=== PATIENT | female | born 1965 | race Hispanic/Latino ===

== ENCOUNTER 2024-08-26 18:35 | Inpatient (IN) | payer OTHER ==
[2024-08-26 19:12] LABS: Absolute Lymphocytes (CBC) 1.4 K/uL (0.7-4.9); Absolute Monocytes 0.3 K/uL (0.1-1.3); Absolute Neutrophil 5.4 K/uL (1.8-8.0); Basophils % 0.5 % (0-1.3); Eosinophils % 0.5 % (0-4.4); Hemoglobin 15.3 g/dL (12.0-15.0); Lymphocytes % 19.5 % (15.3-44.8); MCH 31.6 pg (27.0-35.0); MCHC 34.1 g/dL (32.0-36.0); MCV 92.7 fL (80-100); MPV 8.8 fL (7.6-11.3); Monocytes % 4.8 % (3.3-12.3); Neutrophils % 74.7 % (41.7-73.7); Nucleated Red Blood Cells % 0.1 % (0-0); Platelets 254 thou/uL (152-406); RBC Red Blood Cell Count 4.86 M/uL (3.86-4.86); Red Cell Distribution Width 13.8 % (12.1-15.2)
--- NOTE | 2024-08-26 19:20 | RAD REPORT ---
EXAMINATION: CT HEAD WITHOUT CONTRAST - stroke protocol CLINICAL INDICATION: Female, 59 years old.STROKE ALERT TECHNIQUE: Axial CT images from the skull base to the vertex without intravenous contrast using a str ronnie protocol. Coronal and sagittal reformatted images were created from the data set. One or more of the following dose reduction techniques were used: Automated exposure control, adjustment of the m A and/or kV according to patient size, and/or iterative reconstruction. Unless otherwise specified, incidental findings do not require dedicated imaging follow-up. [id number]. COMPARISON: No prior exam. FINDINGS: INTRACRANIAL: No acute intracranial hemorrhage. No hydrocephalus. No mass effect or midline shift. No significant white matter disease. VASCULATURE: No visualized abnormalities in the arteries or dural venous sinuses. SCALP/SKULL: No significant soft tissue or osseous abnormalities. SINUSES: Mucous retention cyst in the left maxillary sinus. IMPRESSION: No acute intracranial abnormality. THIS REPORT CONTAINS FINDINGS THAT MAY BE CRITICAL TO PATIENT CARE. The findings were communicated to Digna Mcdowell on 08/26/2024 7:16 PM.
--- NOTE | 2024-08-26 19:21 | RAD REPORT ---
EXAMINATION: CTA NECK CLINICAL INDICATION: Female, 59 years old. stroke TECHNIQUE: Axial CT images were obtained from the aortic arch to the skull base after intravenous con trast utilizing angiographic protocol with 3D post-processing (maximum intensity projection images, volume rendered images and/or shaded surface rendered images). One or more of the following dose redu ction techniques were used: Automated exposure control, adjustment of the mA and/or kV according to patient size, and/or iterative reconstruction. Unless otherwise specified, incidental findings do not require dedicated imaging follow-up. [id number]. NASCET criteria used. Mild 0-49% stenosis Moderate 50-69% stenosis Severe 70-99% stenosis COMPARISON: No prior exam. FINDINGS: AORTA: The imaged aortic arch is normal. CCA: The common carotid arteries are patent and normal in caliber. ICA/ECA: Bilateral internal and external carotid arteries are patent. There is no significant interna l carotid artery stenosis. Where applicable, degree of stenosis is measured using NASCET-like criteria. VERTEBRAL: The cervical vertebral arteries are patent and codominant. SOFT TISSUE: No significant neck soft tissue abnormalities. The visualized lung apices are clear. 3D images confirm these findings. IMPRESSION: Normal neck CTA.
[2024-08-26 19:23] LABS: PT Prothrombin Time 11.5 SECONDS (10.0-13.0); PTT, Activated Partial Thromb 33.3 SECONDS (24.3-36.9); Protime INR 1.01
--- NOTE | 2024-08-26 19:23 | RAD REPORT ---
EXAMINATION: CTA HEAD CLINICAL INDICATION: Female, 59 years old. STROKE ALERT TECHNIQUE: Axial CT images were obtained through the head after intravenous contrast utilizing angiog raphic protocol with 3D post-processing (maximum intensity projection images, volume rendered images and/or shaded surface rendered images). One or more of the following dose reduction technique s were used: Automated exposure control, adjustment of the mA and/or kV according to patient size, and/or iterative reconstruction. Unless otherwise specified, incidental findings do not require dedic ated imaging follow-up. COMPARISON: No prior exam. FINDINGS: ICA: The petrous, cavernous, and supraclinoid segments of the bilateral internal carotid arteries are normal. The ophthalmic artery origins are visualized and normal. The posterior communicating arteries are patent. JACQUI: Anterior cerebral arteries are normal bilaterally. The anterior communicating artery is patent. MCA: Middle cerebral arteries are normal bilaterally. HOUSE ADMIN: Posterior cerebral arteries are normal bilaterally. Vertebrobasilar: The vertebral arteries are patent. The basilar artery is normal in appearance. Opacified left sphenoid sinus. Mucous retention cyst left maxillary sinus. 3D images confirm these findings. IMPRESSION: No occlusion, aneurysm, or hemodynamically significant stenosis identified.
--- NOTE | 2024-08-26 19:35 | RAD REPORT ---
EXAM: Chest Single View HISTORY: stroke COMPARISON: None. FINDINGS: LUNGS/PLEURA: The lungs are clear. No pleural effusions or pneumothorax. No pulmonary edema. MEDIASTINUM: The mediastinal silhouette is within normal limits. CARDIAC: The cardiac silhouette is within normal limits. UPPER ABDOMEN: No significant abnormality. BONES: No acute abnormality. LINES/TUBES/OTHER: N/A IMPRESSION: No evidence of acute cardiopulmonary disease.
[2024-08-26 19:37] LABS: Albumin 3.7 g/dL (3.4-5.0); Albumin/Globulin Ratio 0.8 (1.1-1.8); Anion Gap 9.9 mEq/L (5.0-15.0); Bilirubin Direct 0.2 mg/dL (0-0.2); Bilirubin Indirect, Calculated 0.4 mg/dL (0.2-0.8); Bilirubin Total 0.6 mg/dL (0.2-1.0); Globulin 4.6 g/dL (2.3-3.5); Magnesium 2.3 mg/dL (1.6-2.4); Potassium 3.9 mEq/L (3.5-5.1); Protein, Total 8.3 g/dL (6.4-8.2); Thyroid Stimulating Hormone 2.08 uIU/mL (0.358-3.740); Troponin High Sensitivity 3.8 pg/mL (<58.9)
--- NOTE | 2024-08-26 19:45 | RAD REPORT ---
EXAMINATION: CT ABDOMEN AND PELVIS WITH CONTRAST CLINICAL INDICATION: Female, 59 years old.ABD PAIN TECHNIQUE: CT abdomen and pelvis was performed, after the administration of IV contrast, as [facility]. Axial, sagittal and coronal reconstructions were obtained. One or more of the following dose reduction techniques were used: Automated exposure control, adjustment of the mA and/o r kV according to patient size, and/or iterative reconstruction. Unless otherwise specified, incidental findings do not require dedicated imaging follow-up. [id number]. COMPARISON: No prior exam. FINDINGS: LOWER CHEST: No acute process identified.No significant pericardial effusion. UPPER GI: No significant abnormality. LIVER: Benign appearing low density liver lesions. No suspicious mass. GALLBLADDER/BILE DUCTS: Cholecystectomy. Mild extra-hepatic biliary ductal dilatation is likely relat ed to the post-cholecystectomy state. Consider correlating with LFT's.? PANCREAS: No mass, ductal dilation, or madeline-pancreatic fluid. SPLEEN: Unremarkable. ADRENALS: No adrenal masses. KIDNEYS AND URETERS: No hydronephrosis.No suspicious renal mass.No renal calculi. ABDOMINAL AORTA AND OTHER VESSELS: Normal caliber aorta and IVC. PERITONEUM: No abnormal free fluid. No free air. LYMPH NODES: No pathologic lymphadenopathy. ABDOMINAL WALL: Small fat containing umbilical hernia. SMALL BOWEL/COLON: Small bowel has normal course and caliber. No colonic wall thickening or pericolon ic inflammatory changes.Normal appendix. Mild diverticulosis without diverticulitis. URINARY BLADDER: Circumferential bladder wall thickening which could reflect cystitis. Correlate with urinalysis. REPRODUCTIVE ORGANS: No pathologic process. MUSCULOSKELETAL: Multilevel degenerative changes in the spine. No acute fracture. ADDITIONAL FINDINGS: None. IMPRESSION: No acute findings within the abdomen or pelvis. Possible cystitis.
[2024-08-26 20:39] LABS: Urine Bacteria None Seen /HPF (<20); Urine Bilirubin NEGATIVE (Negative); Urine Blood Negative (Negative); Urine Clarity Clear (Clear); Urine Color Colorless (Yellow); Urine Culture Reflex Order NOT NEEDED; Urine Glucose NEGATIVE (Negative); Urine Ketones 1+ (Negative); Urine Micro Reflex YN NO BILL MICROSCOPIC; Urine Nitrite NEGATIVE (Negative); Urine Protein NEGATIVE (Negative); Urine RBC <5 /HPF (None Seen); Urine Urobilinogen Normal (Normal); Urine WBC <5 /HPF (<5)
[2024-08-26 20:42] LABS: Barbiturates NEGATIVE (NEGATIVE); Benzodiazepines NEGATIVE (NEGATIVE); Cocaine NEGATIVE (NEGATIVE); METHAMPHETAM NEGATIVE (NEGATIVE); Methadone NEGATIVE (NEGATIVE); Opiates NEGATIVE (NEGATIVE); Phencyclidine NEGATIVE (NEGATIVE); THC Cannibis NEGATIVE (NEGATIVE)
[2024-08-26 20:43] LABS: Specific Gravity > 1.030 (1.005-1.030)
--- NOTE | 2024-08-26 20:55 | RAD REPORT ---
UPPER EXTREMITY VENOUS UNILATE CLINICAL INDICATION: Female, 59 years old.NUMBNESS/TINGLING TECHNIQUE: Complete duplex sonography of the lower extremity veins was performed of the affected limb . The examination included compression for vein patency, color Doppler imaging and flow augmentation in response to distal compression of the distal external iliac, common femoral, femoral, popliteal, peroneal, tibial and great saphenous veins. [id number]. COMPARISON: EXAM: Left upper extremity venous ultrasound HISTORY: Left upper extremity pain and edema COMPARISON: None TECHNIQUE: Multiplanar grayscale and color Doppler images were obtained in a left upper extremity hari ous ultrasound. Spectral analysis of the Doppler waveforms were performed. FINDINGS: The internal jugular vein demonstrates normal compression and flow without evidence of thrombus. The subclavian vein demonstrates normal flow and augmentation without evidence of thrombus. The axillary and brachial veins demonstrate normal compression, flow, and augmentation without eviden ce of thrombus. The venous structures distal to the elbow are patent without thrombus. The cephalic and basilic veins are patent. IMPRESSION: No evidence of deep venous thrombosis in the left upper extremity
--- NOTE | 2024-08-26 21:09 | ER ---
Nurse's Notes [facility] Name: Augusta Geronimo Age: 59 yrs Sex: Female : 1965 Arrival Date: 08/26/2024 Time: 18:35 Bed 16 Private MD: Diagnosis: CVA rule out Presentation: 08/26 18:44 Chief complaint: Patient states: she took a weightloss shot yesterday, and then got an ap3 IV infusion because she felt dehydrated. patient states today she was nauseated and "feeling off". patient also reports that before she vomited her left arm went numb approx one hour ago at 1745, then she vomited green stuff, and she has never done that before. patient states, "I just feel off". Patient states the last time she felt her normal self was last night at 2030. Coronavirus screen: At this time, the client does not indicate any symptoms associated with coronavirus-19. Ebola Screen: No symptoms or risks identified at this time. Initial Sepsis Screen: Does the patient meet any 2 criteria? No. Patient's initial sepsis screen is negative. Does the patient have a suspected source of infection? No. Patient's initial sepsis screen is negative. Risk Assessment: Do you want to hurt yourself or someone else? Patient reports no desire to harm self or others. Onset of symptoms was August 25, 2024 at 20:30. 18:44 Method Of Arrival: Ambulatory ap3 18:44 Acuity: FRANCISCO 2 ap3 18:52 Note code stroke called at 1852. ap3 19:20 No acute neurological deficit is noted. Pre-hospital glucose is not applicable to this al5 patient. Triage Assessment: 18:48 General: Appears ill, Behavior is calm, cooperative, appropriate for age. Pain: ap3 Complains of pain in abdomen. Neuro: Reports numbness in left arm. Cardiovascular: Patient's skin is warm and dry. Respiratory: Airway is patent Respiratory effort is even, unlabored, Respiratory pattern is regular, symmetrical. GI: Reports nausea, vomiting. 19:20 The onset of the patients symptoms was August 25, 2024 at 20:30. al5 Stroke Activation: Physician: ED Attending; Name: ; Notified At: ; Arrived At: Physician: Mid-Level Provider; Name: ; Notified At: ; Arrived At: Physician: [not used]; Name: ; Notified At: ; Arrived At: Physician: [not used]; Name: ; Notified At: ; Arrived At: Physician: [not used]; Name: ; Notified At: ; Arrived At: 19:20 n/a al5 Historical: - Allergies: 18:47 No Known Allergies; ap3 - Home Meds: 18:47 levothyroxine oral [Active]; ap3 - PMHx: 18:47 Hypothyroidism; ap3 - Immunization history:: Client reports receiving the 2nd dose of the Covid vaccine, Flu vaccine status is unknown. - Infectious Disease History:: Denies. - Social history:: Smoking status: unknown. Screenin:49 [facility] ED Fall Risk Assessment (Adult) History of falling in the last 3 months, ap3 including since admission No falls in past 3 months (0 pts) Confusion or Disorientation No (0 pts) Intoxicated or Sedated No (0 pts) Impaired Gait No (0 pts) Mobility Assist Device Used No (0 pt) Altered Elimination No (0 pt) Score/Fall Risk Level 0 - 2 = Low Risk Oriented to surroundings, Maintained a safe environment, Educated pt \\T\\ family on fall prevention, incl call for assistance when getting out of bed, Assessed \\T\\ reinforced patient's understanding of fall precautions, Hourly rounding (assess needs \\T\\ fall precautionary measures) done, Used ambulatory aids as needed (educated on \\T\\ assisted with). Abuse screen:. Nutritional screening: No deficits noted. Tuberculosis screening: No symptoms or risk factors identified. 19:00 [place] Swallow Protocol Brief Cognitive Screen What is your name? Normal, Where are you kb3 right now? Normal, What year is it? Normal. Oral Mechanism Examination Facial Symmetry: Normal, Motion: Normal, Lip Closure: Normal, Oral Mechanism Result: Normal. 3 oz Water Swallow Challenge: Pt able to drink all water without stopping, coughing, choking or throat clearing: Yes Result: PASS. Assessment: 18:53 Reassessment: Pt taken to CT scan, via wheelchair, accompanied by me. . aa5 19:17 Reassessment: Pt back from CT scan, via wheelchair, accompanied by me. . aa5 19:20 General: Appears in no apparent distress. comfortable, Behavior is calm, cooperative. al5 Pain: Denies pain. Neuro: Level of Consciousness is awake, alert, obeys commands, Oriented to person, place, time, situation, Electrical Appliance Mechanic are equal bilaterally Moves all extremities. Full function Gait is steady, Speech is normal, Facial symmetry appears normal, Pupils are PERRLA, Numbness in left hand. Cardiovascular: Capillary refill < 3 seconds Patient's skin is warm and dry. Respiratory: Airway is patent Respiratory effort is even, unlabored, Respiratory pattern is regular, symmetrical. GI: Abdomen is flat, non-distended, Reports nausea. : No signs and/or symptoms were reported regarding the genitourinary system. EENT: No signs and/or symptoms were reported regarding the EENT system. Derm: Skin is intact, is healthy with good turgor, Skin is pink, warm \\T\\ dry. normal. Musculoskeletal: Capillary refill < 3 seconds, Range of motion: intact in all extremities, Reports numbness in left hand. 19:20 VAN Scoring: Arm Drift: Patients demonstrates NO arm weakness. Patient is VAN Negative. al5 Visual Disturbance: No visual disturbance noted. Aphasia: No aphasia noted. Neglect: No neglect noted. [place] Swallow Protocol Exclusion Criteria: Exclusion Criteria Result: Proceed Brief Cognitive Screen What is your name? Normal, Where are you right now? Normal, What year is it? Normal. Oral Mechanism Examination Facial Symmetry: Normal, Motion: Normal, Lip Closure: Normal, Oral Mechanism Result: Normal. 3 oz Water Swallow Challenge: Pt able to drink all water without stopping, coughing, choking or throat clearing: Yes Result: PASS MD Notified: Digna Mcdowell PA-C. TNKase (Tenecteplase) Screening: Contraindications: Patient reports onset of signs and symptoms of stroke greater than 6 hours ago: Yes. 20:13 Reassessment: Patient appears in no apparent distress at this time. No changes from al5 previously documented assessment. Patient and/or family updated on plan of care and expected duration. Pain level reassessed. Patient is alert, oriented x 3, equal unlabored respirations, skin warm/dry/pink. Vital Signs: 18:44 BP 124 / 82; Pulse 111; Resp 18; Temp 98.2(O); Pulse Ox 100% ; Weight 69.4 kg; Height 5 ap3 ft. 0 in. ; Pain 7/10; 19:00 al5 21:19 BP 137 / 77; Pulse 79; Resp 13; Pulse Ox 100% ; sb4 18:44 Body Mass Index 29.88 (69.40 kg, 152.4 cm) ap3 18:44 Pain Scale: Adult ap3 19:00 see stroke checklist for vital signs al5 NIH Stroke Scale Scores: 18:54 NIHSS Score: 1 sb4 19:20 NIHSS Score: 1 al5 ED Course: 18:38 Patient arrived in ED. mr 18:44 Digna Mcdowell PA-C is PHCP. sb4 18:44 Christopher Peter MD is Attending Physician. sb4 18:47 Triage completed. ap3 18:49 Arm band placed on right wrist. ap3 19:08 CT Stroke Brain w/o Contrast In Process Unspecified. EDMS 19:12 June Reid, GABRIEL is Primary Nurse. al5 19:14 CT Head Angio In Process Unspecified. EDMS 19:14 CT Neck Angio In Process Unspecified. EDMS 19:14 CT Abd/Pelvis - IV Contrast Only In Process Unspecified. EDMS 19:20 Patient has correct armband on for positive identification. Placed in gown. Bed in low al5 position. Call light in reach. Side rails up X2. Provided Education on: plan of care. 19:20 No provider procedures requiring assistance completed. Inserted saline lock: 20 gauge al5 in left antecubital area, using aseptic technique. Blood collected. Flushed with 10 mL NS. 19:28 Stroke CXR 1 View In Process Unspecified. EDMS 20:50 UPPER EXTREMITY VENOUS UNILATE In Process Unspecified. EDMS 21:09 River Moser MD is Hospitalizing Provider. sb4 21:09 Patient admitted, IV remains in place. al5 Administered Medications: 21:51 Drug: NS 0.9% IV 1000 ml IV at 1 bolus Per protocol; to be given as a bolus over 60 al5 minutes Route: IV; Rate: 1 bolus; Site: left antecubital; 08/27 03:22 Follow up: Response: No adverse reaction; IV Status: Completed infusion ay 08/26 21:51 Drug: Aspirin PO Chewable Tablet 162 mg PO once Route: PO; al5 22:26 Follow up: Response: No adverse reaction al5 21:51 Not Given (medication not available, provider notifiedd): folic acid1 mg IVPB once al5 22:26 Drug: foLIC Acid PO 1 mg PO once Route: PO; al5 08/27 03:22 Follow up: Response: No adverse reaction ay 08/26 22:26 Drug: metoCLOPramide IVP 10 mg IVP once; over 1 to 2 minutes Route: IVP; Site: left al5 antecubital; 08/27 03:21 Follow up: Response: No adverse reaction ay 08/26 22:26 Drug: diphenhydrAMINE IVP 25 mg IVP once Route: IVP; Site: left antecubital; al5 08/27 03:21 Follow up: Response: No adverse reaction ay 08/26 22:26 Drug: Ketorolac IVP 15 mg IVP once Route: IVP; Site: left antecubital; al5 08/27 03:21 Follow up: Response: No adverse reaction ay Medication: 08/26 19:20 VIS not applicable for this client. al5 Point of Care Testing: Blood Glucose: 19:20 Blood Glucose: 92 mg/dL; al5 Ranges: Outcome: 21:09 Decision to Hospitalize by Provider. sb4 21:09 Admitted to ER Hold. Please see [facility] for further documentation. al5 21:09 Condition: stable 21:09 Instructed on the need for admit, 08/27 14:49 Patient left the ED. ll1 NIH Stroke Scale - NIH Stroke Score Date: 08/26/2024 Time: 18:54 Total Score = 1 10. Dysarthria (speech clarity - read or repeat words) - 0(Normal) 11. Extinction and Inattention (visual/tactile/auditory/spatial/personal) - 0(No abnormality) 1a. Level of Consciousness (LOC) - 0(Alert) 1b. Level of Consciousness (LOC) (Month \\T\\ Age) - 0(Both) 1c. LOC Commands (Open \\T\\ Closes Eyes/Derivatives Trader) - 0(Both) 2. Best Gaze (Lateral Gaze Paresis) - 0(Normal) 3. Visual Field Loss - 0(No visual loss) 4. Facial Palsy - 0(Normal) 5a. Left Arm: Motor (10-second hold) - 0(No drift) 5b. Right Arm: Motor (10-second hold) - 0(No drift) 6a. Left Leg: Motor (5-second hold - always test supine) - 0(No drift) 6b. Right Leg: Motor (5-second hold - always test supine) - 0(No drift) 7. Limb Ataxia (finger/nose \\T\\ heel/mcconnell - test with eyes open) - 0(Absent) 8. Sensory Loss (pinprick arms/legs/face) - 1(Mild to moderate loss) 9. Best Language: Aphasia (description/naming/reading) - 0(No aphasia) Initials: sb4 NIH Stroke Scale - NIH Stroke Score Date: 08/26/2024 Time: 19:20 Total Score = 1 10. Dysarthria (speech clarity - read or repeat words) - 0(Normal) 11. Extinction and Inattention (visual/tactile/auditory/spatial/personal) - 0(No abnormality) 1a. Level of Consciousness (LOC) - 0(Alert) 1b. Level of Consciousness (LOC) (Month \\T\\ Age) - 0(Both) 1c. LOC Commands (Open \\T\\ Closes Eyes/Derivatives Trader) - 0(Both) 2. Best Gaze (Lateral Gaze Paresis) - 0(Normal) 3. Visual Field Loss - 0(No visual loss) 4. Facial Palsy - 0(Normal) 5a. Left Arm: Motor (10-second hold) - 0(No drift) 5b. Right Arm: Motor (10-second hold) - 0(No drift) 6a. Left Leg: Motor (5-second hold - always test supine) - 0(No drift) 6b. Right Leg: Motor (5-second hold - always test supine) - 0(No drift) 7. Limb Ataxia (finger/nose \\T\\ heel/mcconnell - test with eyes open) - 0(Absent) 8. Sensory Loss (pinprick arms/legs/face) - 1(Mild to moderate loss) 9. Best Language: Aphasia (description/naming/reading) - 0(No aphasia) Initials: al5 Signatures: Dispatcher [employer] [facility] Mary Shelton, Reg Reg mr Jose REduarda, RN RN aa5 June Howard RN RN ap3 Gabriel Molina RN RN ll1 Sejal Hickey RN RN kb3 Digna Mcdowell, PA-C PA-C sb4 June Reid RN RN al5 King Multani RN RN ay
--- NOTE | 2024-08-26 21:10 | EDPHYS ---
Physician Documentation [facility] Name: Augusta Geronimo Age: 59 yrs Sex: Female : 1965 Arrival Date: 08/26/2024 Time: 18:35 Bed 16 Private MD: ED Physician Christopher Peter HPI: 08/26 18:53 This 59 yrs old Female presents to ER via Ambulatory with complaints of sb4 Numbness Of Arm, Nausea. 18:55 Patient states that she has been feeling "off "since yesterday. States that she had her sb4 routine weight loss shot and IV infusion yesterday because she was feeling dehydrated. States she woke up this morning feeling nauseated, so she took a nap. When she woke up around noon she states that she felt numbness and tingling in her left arm and proceeded to vomit. States that the symptoms have persisted and now she is having diffuse abdominal pain. Denies any difficulty speaking, swallowing, walking. Denies any other acute deficits. Denies any cardiac history. Historical: - Allergies: 18:47 No Known Allergies; ap3 - Home Meds: 18:47 levothyroxine oral [Active]; ap3 - PMHx: 18:47 Hypothyroidism; ap3 - Immunization history:: Client reports receiving the 2nd dose of the Covid vaccine, Flu vaccine status is unknown. - Infectious Disease History:: Denies. - Social history:: Smoking status: unknown. ROS: 18:55 Constitutional: Negative for fever, chills, and weight loss, sb4 18:55 Abdomen/GI: Positive for abdominal pain, nausea, 18:55 Neuro: Positive for Per HPI, 18:55 All other systems are negative, Exam: 18:55 Head/Face: Normocephalic, atraumatic. Eyes: Extra-ocular motions intact. Periorbital sb4 areas with no swelling, redness, or edema. ENT: Mucous membranes moist. Cardiovascular: Regular rate and rhythm with a normal S1 and S2. Respiratory: No increased work of breathing, no retractions or nasal flaring. Abdomen/GI: Soft, non-tender, no distension. Skin: Warm, dry with normal turgor. Normal color with no rashes, no lesions, and no evidence of cellulitis. MS/ Extremity: Pulses equal, no cyanosis. Neurovascular intact. Full, normal range of motion. Neuro: Awake and alert, GCS 15, oriented to person, place, time, and situation. Motor strength 5/5 in all extremities. Sensory grossly intact. 18:55 Constitutional: The patient appears in no acute distress, alert, awake, 18:55 Neuro: Sensation: numbness, that is mild, of the left arm, 19:32 Neuro: Gait: is steady, at a normal pace, without difficulty, sb4 Vital Signs: 18:44 BP 124 / 82; Pulse 111; Resp 18; Temp 98.2(O); Pulse Ox 100% ; Weight 69.4 kg; Height 5 ap3 ft. 0 in. ; Pain 7/10; 19:00 al5 21:19 BP 137 / 77; Pulse 79; Resp 13; Pulse Ox 100% ; sb4 18:44 Body Mass Index 29.88 (69.40 kg, 152.4 cm) ap3 18:44 Pain Scale: Adult ap3 19:00 see stroke checklist for vital signs al5 NIH Stroke Scale Scores: 18:54 NIHSS Score: 1 sb4 19:20 NIHSS Score: 1 al5 MDM: 18:46 Medical Screening Exam initiated sb4 21:17 Data reviewed: vital signs, nurses notes, lab test result(s), EKG, radiologic studies, sb4 and as a result, I will admit patient. Consideration of Admission/Observation Patient was admitted/placed on observation. Counseling: I had a detailed discussion with the patient and/or guardian regarding the historical points, exam findings, and any diagnostic results supporting the discharge/admit diagnosis, lab results, radiology results, the need for further work-up and treatment in the hospital. 08/26 18:52 Order name: Basic Metabolic Panel; Complete Time: 19:38 sb4 08/26 18:52 Order name: CBC with Diff; Complete Time: 19:15 sb4 08/26 18:52 Order name: Hepatic Function; Complete Time: 19:38 sb4 08/26 18:52 Order name: High Sensitivity Troponin; Complete Time: 19:38 sb4 08/26 18:52 Order name: Magnesium; Complete Time: 19:38 sb4 08/26 18:52 Order name: Protime (+inr); Complete Time: 19:26 sb4 08/26 18:52 Order name: Ptt, Activated; Complete Time: 19:26 sb4 08/26 18:52 Order name: UDS; Complete Time: 20:43 sb4 08/26 18:53 Order name: TSH; Complete Time: 19:38 sb4 08/26 18:53 Order name: UAM; Complete Time: 20:44 sb4 08/26 19:35 Order name: Glucose, Ancillary Testing; Complete Time: 19:36 EDMS 08/26 21:19 Order name: COVID-19 Ag + Flu A+B Ag; Complete Time: 22:39 sb4 08/26 23:23 Order name: T4,Total EDMS 08/26 23:23 Order name: Thyroid Stimulating Hormone EDMS 08/26 23:23 Order name: CBC with Automated Diff EDMS 08/26 23:23 Order name: CBC with Automated Diff; Complete Time: 13:01 EDMS 08/26 23:23 Order name: Comprehensive Metabolic Panel EDMS 08/26 23:23 Order name: Comprehensive Metabolic Panel; Complete Time: 13:01 EDMS 08/27 05:54 Order name: T4,Total; Complete Time: 13:01 EDMS 08/27 05:54 Order name: Thyroid Stimulating Hormone; Complete Time: 13:01 EDMS 08/27 08:26 Order name: Lipase; Complete Time: 13:01 EDMS 08/27 10:07 Order name: LDL, Direct; Complete Time: 13:01 EDMS 08/26 18:52 Order name: CT Stroke Brain w/o Contrast; Complete Time: 19:26 sb4 08/26 18:52 Order name: Stroke CXR 1 View; Complete Time: 19:36 sb4 08/26 19:07 Order name: CT Head Angio; Complete Time: 19:26 sb4 08/26 19:07 Order name: CT Neck Angio; Complete Time: 19:26 sb4 08/26 19:07 Order name: CT Abd/Pelvis - IV Contrast Only; Complete Time: 19:48 sb4 08/26 20:26 Order name: Extremity Venous Uni Ltd US sb4 08/26 20:30 Order name: UPPER EXTREMITY VENOUS UNILATE; Complete Time: 20:56 EDMS 08/26 23:23 Order name: Echo with Doppler EDMS 08/27 10:55 Order name: MRI; Complete Time: 13:01 EDMS 08/26 18:52 Order name: EKG; Complete Time: 18:53 sb4 08/26 23:23 Order name: CONS Physician Consult EDID 08/26 23:23 Order name: IRF Screen EDID 08/26 23:23 Order name: Physical Therapy Consult EDID 08/26 23:23 Order name: Speech Therapy Consult EDID 08/26 18:52 Order name: Accucheck; Complete Time: 19:52 sb4 08/26 18:52 Order name: Cardiac monitoring; Complete Time: 19:52 sb4 08/26 18:52 Order name: EKG - Nurse/Tech; Complete Time: 19:52 sb4 08/26 18:52 Order name: IV Saline Lock; Complete Time: 19:51 sb4 08/26 18:52 Order name: Labs collected and sent; Complete Time: 19:51 sb4 08/26 18:52 Order name: O2 Per Protocol; Complete Time: 19:51 sb4 08/26 18:52 Order name: O2 Sat Monitoring; Complete Time: 19:52 sb4 08/26 18:52 Order name: Stroke Swallow Screen; Complete Time: 19:52 sb4 EC: Rate is 102 beats/min. Rhythm is regular, Sinus tachycardia. CO interval is normal at sb4 182 msec. QRS interval is normal at 86 msec. QT interval is normal at 358 msec. No Q waves. T waves are Normal. No ST changes noted. Clinical impression: No evidence of ischemia. Interpreted by me. Reviewed by me. Administered Medications: 21:51 Drug: NS 0.9% IV 1000 ml IV at 1 bolus Per protocol; to be given as a bolus over 60 al5 minutes Route: IV; Rate: 1 bolus; Site: left antecubital; 08/27 03:22 Follow up: Response: No adverse reaction; IV Status: Completed infusion 08/26 21:51 Drug: Aspirin PO Chewable Tablet 162 mg PO once Route: PO; al5 22:26 Follow up: Response: No adverse reaction al 21:51 Not Given (medication not available, provider notifiedd): folic acid1 mg IVPB once al5 22:26 Drug: foLIC Acid PO 1 mg PO once Route: PO; al5 08/27 03:22 Follow up: Response: No adverse reaction 08/26 22:26 Drug: metoCLOPramide IVP 10 mg IVP once; over 1 to 2 minutes Route: IVP; Site: left al5 antecubital; 08/27 03:21 Follow up: Response: No adverse reaction ay 08/26 22:26 Drug: diphenhydrAMINE IVP 25 mg IVP once Route: IVP; Site: left antecubital; al5 08/27 03:21 Follow up: Response: No adverse reaction ay 08/26 22:26 Drug: Ketorolac IVP 15 mg IVP once Route: IVP; Site: left antecubital; al5 08/27 03:21 Follow up: Response: No adverse reaction ay Point of Care Testing: Blood Glucose: 08/26 19:20 Blood Glucose: 92 mg/dL; al5 Ranges: Critical Glucose Levels:Adult <50 mg/dl or >400 mg/dl <40 mg/dl or >180 mg/dl Disposition Summary: 08/26/24 21:09 Hospitalization Ordered Notes: Hospitalization Status: Observation sb4 Provider: River Moser sb4 Condition: Fair sb4 Problem: new sb4 Symptoms: are unchanged sb4 Bed/Room Type: Standard sb4 Location: [facility] ER HOLD(08/26/24 21:58) cg Room Assignment: ERHOLD-(08/26/24 21:58) cg Diagnosis - CVA rule out sb4 Forms: - Medication Reconciliation Form sb4 - SBAR form sb4 - Leadership Thank You Letter sb4 NIH Stroke Scale - NIH Stroke Score Date: 08/26/2024 Time: 18:54 Total Score = 1 10. Dysarthria (speech clarity - read or repeat words) - 0(Normal) 11. Extinction and Inattention (visual/tactile/auditory/spatial/personal) - 0(No abnormality) 1a. Level of Consciousness (LOC) - 0(Alert) 1b. Level of Consciousness (LOC) (Month \\T\\ Age) - 0(Both) 1c. LOC Commands (Open \\T\\ Closes Eyes/Aml Analyst) - 0(Both) 2. Best Gaze (Lateral Gaze Paresis) - 0(Normal) 3. Visual Field Loss - 0(No visual loss) 4. Facial Palsy - 0(Normal) 5a. Left Arm: Motor (10-second hold) - 0(No drift) 5b. Right Arm: Motor (10-second hold) - 0(No drift) 6a. Left Leg: Motor (5-second hold - always test supine) - 0(No drift) 6b. Right Leg: Motor (5-second hold - always test supine) - 0(No drift) 7. Limb Ataxia (finger/nose \\T\\ heel/mcconnell - test with eyes open) - 0(Absent) 8. Sensory Loss (pinprick arms/legs/face) - 1(Mild to moderate loss) 9. Best Language: Aphasia (description/naming/reading) - 0(No aphasia) Initials: sb4 NIH Stroke Scale - NIH Stroke Score Date: 08/26/2024 Time: 19:20 Total Score = 1 10. Dysarthria (speech clarity - read or repeat words) - 0(Normal) 11. Extinction and Inattention (visual/tactile/auditory/spatial/personal) - 0(No abnormality) 1a. Level of Consciousness (LOC) - 0(Alert) 1b. Level of Consciousness (LOC) (Month \\T\\ Age) - 0(Both) 1c. LOC Commands (Open \\T\\ Closes Eyes/Aml Analyst) - 0(Both) 2. Best Gaze (Lateral Gaze Paresis) - 0(Normal) 3. Visual Field Loss - 0(No visual loss) 4. Facial Palsy - 0(Normal) 5a. Left Arm: Motor (10-second hold) - 0(No drift) 5b. Right Arm: Motor (10-second hold) - 0(No drift) 6a. Left Leg: Motor (5-second hold - always test supine) - 0(No drift) 6b. Right Leg: Motor (5-second hold - always test supine) - 0(No drift) 7. Limb Ataxia (finger/nose \\T\\ heel/mcconnell - test with eyes open) - 0(Absent) 8. Sensory Loss (pinprick arms/legs/face) - 1(Mild to moderate loss) 9. Best Language: Aphasia (description/naming/reading) - 0(No aphasia) Initials: al5 Addendum: 08/31/2024 12:49 I was immediately available for consultation during this patient's visit. I did ec2 not personally see the patient or discuss the patient with the PAIGE. . Signatures: Dispatcher [employer] Oksana Tariq RN RN cg Prokisch, Amanda, RN RN ap3 Digna Mcdowell PA-C PAChris sb4 Christopher Peter MD MD ec2 June Reid RN RN al5 King Multani RN ay Corrections: (The following items were deleted from the chart) 08/26 18:54 18:54 THYROID STIMULAT HORMONE+C.LAB.BRZ ordered. EDMS EDMS 19:32 18:55 Head/Face: Normocephalic, atraumatic. Eyes: Extra-ocular motions intact. sb4 Periorbital areas with no swelling, redness, or edema. ENT: Mucous membranes moist. Cardiovascular: Regular rate and rhythm with a normal S1 and S2. Respiratory: No increased work of breathing, no retractions or nasal flaring. Abdomen/GI: Soft, non-tender, no distension. Skin: Warm, dry with normal turgor. Normal color with no rashes, no lesions, and no evidence of cellulitis. MS/ Extremity: Pulses equal, no cyanosis. Neurovascular intact. Full, normal range of motion. Neuro: Awake and alert, GCS 15, oriented to person, place, time, and situation. Motor strength 5/5 in all extremities. Sensory grossly intact. sb4 21:58 21:09 Telemetry/MedSurg (observation) sb4 cg :58 21:09 sb4 cg
[2024-08-26] MEDS ORDERED: ASPIRIN 81 MG CHEWABLE TABLET ONE (21:42)
[2024-08-26] MEDS ORDERED: NA CHLORIDE 0.9% 1,000 ML ONE (21:43)
[2024-08-26] MEDS ORDERED: KETOROLAC 30 MG/ML INJ ONE (22:15)
[2024-08-26] MEDS ORDERED: METOCLOPRAMIDE 10 MG/2mL INJ ONE (22:15)
[2024-08-26] MEDS ORDERED: FOLIC ACID 1 MG TABLET ONE (22:15)
[2024-08-26] MEDS ORDERED: DIPHENHYDRAMINE 50 MG/ML VIAL ONE (22:15)
[2024-08-26 22:38] LABS: Influenza A Ag Negative; Influenza B Ag Negative; SARS-CoV-2 Antigen Rapid Res Negative (Negative)
[2024-08-26] MEDS ORDERED: ONDANSETRON 4 MG/2 ML VIAL IV PRN (23:16)
--- NOTE | 2024-08-26 23:16 | P.HP ---
Certification for Inpatient Patient admitted to: Observation With expected LOS: <2 Midnights Practitioner: I am a practitioner with admitting privileges, knowledge of patient current condition, hospital course, and medical plan of care. Services: Services provided to patient in accordance with Admission requirements found in Title 42 Section 412.3 of the Code of Federal Regulations Patient History Date of Service: 08/26/24 Reason for admission: ? CVA History of Present Illness: 59 yrs old Female with past medical history of hypothyroidism on levothyroxine who was brought to ER with numbness of the arm and left side of the body associated with generalized weakness and fatigue patient started earlier today. She complains of numbness of arm associated headache and nausea. Has been feeling "off "since yesterday. States that she had her routine weight loss shot and IV infusion yesterday because she was feeling dehydrated. States she woke up this morning feeling nauseated, so she took a nap. When she woke up around noon she states that she felt numbness and tingling in her left arm and proceeded to vomit. States that the symptoms have persisted and now she is galarza ving diffuse abdominal pain. Denies any difficulty speaking, swallowing, walking. Denies any other acute deficits. Denies any history of arrhythmias Patient was assessed in the ER and is admitted for further management of possible CVA/TIA Home medications list reviewed: Yes - Past Medical/Surgical History Past Medical History: Reviewed- Non-Contributory -: Hypothyroidism Past Surgical History: Reviewed- Non-Contributory - Family History Family History: Reviewed- Non-Contributory - Social History Smoking Status: Never smoker Review of Systems 10-point ROS is otherwise unremarkable Physical Examination - Vital Signs Temperature: 98.2 F Blood Pressure: 138/62 Pulse: 78 Respirations: 18 Pulse Ox (%): 94 - Physical Exam General: Alert, In no apparent distress, Oriented x3 HEENT: Atraumatic, Normocephalic Neck: Supple, JVD not distended Respiratory: Clear to auscultation bilaterally, Normal air movement Cardiovascular: Regular rate/rhythm, Normal S1 S2 Capillary refill: <2 Seconds Gastrointestinal: Soft and benign, W/out hepatosplenomegaly Musculoskeletal: No clubbing, No swelling Integumentary: No rashes, No breakdown Neurological: Normal speech, Normal strength at 5/5 x4 extr, Cranial nerves 3-12 intact, Normal reflexes 2+, Normal affect Lymphatics: No axilla or inguinal lymphadenopathy - Studies Laboratory Data (last 24 hrs) 08/26/24 08/26/24 08/26/24 19:05 19:05 19:05 WBC 7.20 Hgb 15.3 H Hct 45.0 Plt Count 254 PT 11.5 INR 1.01 APTT 33.3 Sodium 139 Potassium 3.9 BUN 11 Creatinine 0.74 Glucose 103 Magnesium 2.3 Total Bilirubin 0.6 AST 17 ALT 25 Alkaline Phosphatase 114 Assessment and Plan - Plan CVA/TIA No focal weakness Numbness of left-sided body Started on aspirin and statin Continue Plavix CT CTA findings noted MRI brain ordered Monitor neuro vital signs Monitor under telemetry Hypothyroidism Will get a TSH level Continue home medications GI/DVT prophylaxis Advanced directive full code Discharge Plan: Home Plan to discharge in: 48 Hours - Advance Directives Does patient have a Living Will: No Does patient have a Durable POA for Healthcare: No - Code Status/Comfort Care Code Status: Full Code Time Spent Managing Pts Care (In Minutes): 48
[2024-08-26] MEDS: NA CHLORIDE 0.9% 1,000 ML IV SCH (23:45)
[2024-08-27 01:05] VITALS: BMI 29.9
[2024-08-27] MEDS ORDERED: NA CHLORIDE 0.9% 1,000 ML ONE (02:21)
[2024-08-27] MEDS ORDERED: ACETAMINOPHEN 500 MG TAB ONE (02:21)
[2024-08-27] MEDS: ACETAMINOPHEN 500 MG TAB PO PRN (02:33)
[2024-08-27 05:29] LABS: Absolute Eosinophils 0.1 K/uL (0-0.5); Absolute Lymphocytes (CBC) 2.2 K/uL (0.7-4.9); Absolute Monocytes 0.3 K/uL (0.1-1.3); Absolute Neutrophil 2.8 K/uL (1.8-8.0); Basophils % 0.5 % (0-1.3); Eosinophils % 1.1 % (0-4.4); Hematocrit 38.8 % (36.0-45.0); Hemoglobin 13.1 g/dL (12.0-15.0); Lymphocytes % 40.8 % (15.3-44.8); MCH 31.6 pg (27.0-35.0); MCHC 33.9 g/dL (32.0-36.0); MCV 93.4 fL (80-100); MPV 9.3 fL (7.6-11.3); Neutrophils % 51.6 % (41.7-73.7); Nucleated Red Blood Cells % 0.1 % (0-0); Platelets 210 thou/uL (152-406); RBC Red Blood Cell Count 4.15 M/uL (3.86-4.86); Red Cell Distribution Width 13.8 % (12.1-15.2)
[2024-08-27 05:53] LABS: Albumin/Globulin Ratio 0.8 (1.1-1.8); Anion Gap 9.5 mEq/L (5.0-15.0); Bilirubin Total 0.5 mg/dL (0.2-1.0); Globulin 3.6 g/dL (2.3-3.5); Potassium 3.5 mEq/L (3.5-5.1); Protein, Total 6.6 g/dL (6.4-8.2); T4,Total 8.2 ug/dL (4.8-13.9); Thyroid Stimulating Hormone 2.18 uIU/mL (0.358-3.740)
[2024-08-27] MEDS: FLU (Fluarix Triv) TS24-25(6MOS UP)/PF 45 MCG/0.5 ML Syringe IM ONE (07:30)
[2024-08-27] MEDS: PNEUMOCOCCAL VACCINE 0.5 ML IMVAC ONE (08:00)
[2024-08-27] MEDS: ASPIRIN EC 81 MG TAB PO SCH (09:00)
[2024-08-27] MEDS: CLOPIDOGREL 75 MG TABLET PO SCH (09:00)
[2024-08-27] MEDS ORDERED: CLOPIDOGREL 75 MG TABLET ONE (09:39)
[2024-08-27] MEDS ORDERED: ASPIRIN EC 81 MG TAB PO ONE (09:40)
--- NOTE | 2024-08-27 10:55 | RAD REPORT ---
EXAMINATION: MRI BRAIN WITHOUT CONTRAST CLINICAL INDICATION: Female, 59 years old. left sided paresthesia TECHNIQUE: Multiplanar multisequence MR images of the brain were obtained without intravenous contras t. Unless otherwise specified, incidental findings do not require dedicated imaging follow-up. [id number]. COMPARISON: Head CT yesterday FINDINGS: INTRACRANIAL: No acute infarct identified. No significant mass effect or midline shift.No hydrocepha umu. No significant white matter disease.Partially empty sella, typically a normal variant. VASCULATURE: Normal signal voids in the larger intracranial arteries and dural venous sinuses. SINUSES: Mucous retention cyst in the left maxillary sinus.No mastoid effusions. BONE: The marrow signal pattern is within normal limits. IMPRESSION: No acute intracranial abnormality. Specifically, no evidence of acute infarct.
--- NOTE | 2024-08-27 12:58 | ECHO ---
HEIGHT: 5 ft 0 in WEIGHT: 153 lb 0.013 oz DATE OF STUDY: 08/27/[address]: Jeremias Moser DO 2-DIMENSIONAL: YES M.MODE: YES DOPPLER: YES COLOR FLOW: YES TDS: PORTABLE: YES DEFINITY: BUBBLE STUDY: DIAGNOSIS: STROKE CARDIAC HISTORY: CATHERIZATION: NO SURGERY: NO PROSTHETIC VALVE: NO PACEMAKER: NO MEASUREMENTS (cm) DIASTOLIC (NORMALS) SYSTOLIC (NORMALS) IVSd 1.0 (0.6-1.2) LA Diam 1.8 (1.9-4.0) LVEF 60-65% LVIDd 2.9 (3.5-5.7) LVIDs 2.1 (2.0-3.5) %FS 26% LVPWd 1.1 (0.6-1.2) Ao Diam 2.6 (2.0-3.7) 2 DIMENSIONAL ASSESSMENT: RIGHT ATRIUM: NORMAL LEFT ATRIUM: NORMAL RIGHT VENTRICLE: NORMAL LEFT VENTRICLE: NORMAL TRICUSPID VALVE: NORMAL MITRAL VALVE: NORMAL PULMONIC VALVE: NORMAL AORTIC VALVE: NORMAL PERICARDIAL EFFUSION: NONE AORTIC ROOT: NORMAL LEFT VENTRICULAR WALL MOTION: NORMAL DOPPLER/COLOR FLOW: NORMAL COMMENTS: 1. NORMAL LEFT VENTRICULAR SYSTOLIC FUNCTION, EJECTION FRACTION 60-65%, NORMAL WALL MOTION 2. NORMAL DIASTOLIC FUNCTION TECHNOLOGIST: AMADA ROWE
[2024-08-27 14:57] VITALS: TEMP 98.2; O2SAT 100
[2024-08-27 14:58] VITALS: BP 137/77
[2024-08-27] MEDS ORDERED: ENOXAPARIN 40 MG/0.4 ML SQ SCH (17:00)
--- NOTE | 2024-08-27 20:26 | P.DS ---
Admission Date: 08/26/24 Discharge Date: 08/27/24 Disposition: ROUTINE DISCHARGE Discharge Condition: GOOD Reason for Admission: ? CVA Consultations: Neurology - Dr. Nair Brief History of Present Illness: 59yo F, PMH: hypothyroidism on levothyroxine Patient brought to ER with numbness of the arm and left side of the body associated with generalized weakness and fatigue patient started earlier today. She complains of numbness of arm associated headache and nausea. Has been feeling "off "since yesterday. States that she had her routine weight loss shot and IV infusion yesterday because she was feeling dehydrated. States she woke up this morning feeling nauseated, so she took a nap. When she woke up around noon she states that she felt numbness and tingling in her left arm and proceeded to vomit. States that the symptoms have persisted and now she is having diffuse abdominal pain. Denies any difficulty speaking, swallowing, walking. Denies any other acute deficits. Denies any history of arrhythmias. Patient was assessed in the ER and is admitted for further management of possible CVA/TIA Hospital Course: Problem List: Left-sided numbness and weakness, improved Hypothyroidism Physician discharge instructions: Patient presented with left-sided weakness, numbness. Unclear exact etiology. CT brain, MRI brain, CTA head/neck were all negative for any acute findings. CXR negative. Venous ultrasound negative for DVT. Echocardiogram with normal EF and normal diastolic function. Patient was started on aspirin, statin, plavix for possible CVA/TIA. Dr. Nair, Neuro was consulted. Given her improvement and negative imaging, recommended to follow up in office as outpatient for further management.' Patient was feeling better, strength improved, and was deemed stable for discharge. LDL: 102 Medications: aspirin 81mg daily plavix 75mg daily x 1 month atorvastatin 40mg at bedtime/dinner Follow up: PCP 3-5 day Neuro in 2-4 weeks Please call to schedule / confirm appointments Physical Exam: GEN: Alert, oriented, NAD CV: Regular rate and rhythm, no edema Pulm: Nonlabored respirations on room air, clear bilaterally ABD: soft, nontender, nondistended Neuro: Normal speech, normal affect Vital Signs/Physical Exam: Temp Pulse Resp BP Pulse Ox 98.2 F 79 13 137/77 100 08/27/24 14:55 08/27/24 14:57 08/27/24 14:57 08/27/24 14:57 08/27/24 12:00 Laboratory Data at Discharge: WBC 5.50 thou/uL (4.3-10.9) 08/27/24 04:40 Hgb 13.1 g/dL (12.0-15.0) D 08/27/24 04:40 Hct 38.8 % (36.0-45.0) 08/27/24 04:40 Plt Count 210 thou/uL (152-406) 08/27/24 04:40 PT 11.5 SECONDS (10.0-13.0) 08/26/24 19:05 INR 1.01 08/26/24 19:05 APTT 33.3 SECONDS (24.3-36.9) 08/26/24 19:05 Sodium 140 mEq/L (136-145) 08/27/24 04:40 Potassium 3.5 mEq/L (3.5-5.1) 08/27/24 04:40 BUN 10 mg/dL (7-18) 08/27/24 04:40 Creatinine 0.67 mg/dL (0.55-1.02) 08/27/24 04:40 Glucose 84 mg/dL (74-106) 08/27/24 04:40 Magnesium 2.3 mg/dL (1.6-2.4) 08/26/24 19:05 Total Bilirubin 0.5 mg/dL (0.2-1.0) 08/27/24 04:40 AST 16 U/L (15-37) 08/27/24 04:40 ALT 19 U/L (13-56) 08/27/24 04:40 Alkaline Phosphatase 93 U/L (45-117) 08/27/24 04:40 LDL Cholesterol Direct 102 mg/dL (100-129) 08/27/24 04:40 Lipase 24 U/L (13-75) 08/27/24 04:40 Home Medications: Aspirin [Aspirin EC 81 MG] 81 mg PO DAILY 30 Days #30 tab 08/27/24 Atorvastatin Calcium [Lipitor] 40 mg PO BEDTIME 30 Days #30 tab 08/27/24 Clopidogrel Bisulfate [Plavix] 75 mg PO DAILY 30 Days #30 tab 08/27/24 Folic Acid 1 mg PO DAILY 30 Days #30 tab 08/27/24 New Medications: Aspirin [Aspirin EC 81 MG] 81 mg PO DAILY 30 Days #30 tab Folic Acid 1 mg PO DAILY 30 Days #30 tab Atorvastatin Calcium [Lipitor] 40 mg PO BEDTIME 30 Days #30 tab Clopidogrel Bisulfate [Plavix] 75 mg PO DAILY 30 Days #30 tab Physician Discharge Instructions: Physician discharge instructions: Patient presented with left-sided weakness, numbness. Unclear exact etiology. CT brain, MRI brain, CTA head/neck were all negative for any acute findings. CXR negative. Venous ultrasound negative for DVT. Echocardiogram with normal EF and normal diastolic function. Patient was started on aspirin, statin, plavix for possible CVA/TIA. Dr. Nair, Neuro was consulted. Given her improvement and negative imaging, recommended to follow up in office as outpatient for further management.' Patient was feeling better, strength improved, and was deemed stable for discharge. LDL: 102 Medications: aspirin 81mg daily plavix 75mg daily x 1 month atorvastatin 40mg at bedtime/dinner Follow up: PCP 3-5 day Neuro in 2-4 weeks Please call to schedule / confirm appointments Followup: NONE,NONE [Primary Care Provider] - Time spent managing pt's care (in minutes): 45
[2024-08-27] MEDS ORDERED: ATORVASTATIN 40 MG TAB PO SCH (21:00)
--- NOTE | 2024-08-29 16:57 | EKG ---
Test Date: 2024-08-26 Test Time: 19:20:28 Licensing And Registration Director: ROBERT MEASUREMENT RESULTS: Intervals: Rate: 102 RI: 182 QRSD: 86 QT: 358 QTc: 466 [place]: P: 72 RI: 182 QRS: 72 T: 48 INTERPRETIVE STATEMENTS: Sinus tachycardia Otherwise normal ECG Compared to ECG 05/03/2008 08:49:24 Sinus rhythm no longer present Sinus arrhythmia no longer present Short RI interval no longer present Electronically Signed On 08-29-24 16:47:38 ROLLER PRINTER by Murphy Bhatti
== END 2024-08-27 14:42 | disposition home or self-care (01) | DRG 948 ==
LOC: ER 18:35 → ERHOLD 23:16
PROVIDERS: ADMIT Family Medicine; ATTEND Hospitalist
DX: R53.1 Weakness (principal); E03.9 Hypothyroidism, unspecified; R20.0 Anesthesia of skin; Z79.82 Long term (current) use of aspirin; Z11.52 Encounter for screening for COVID-19; Z79.02 Long term (current) use of antithrombotics/antiplatelets; Z79.890 Hormone replacement therapy; Z79.899 Other long term (current) drug therapy
CPT/HCPCS: 36415; 70450; 70496; 70498; 70551; 71045; 74177; 80048; 80053; 80076; 80307; 81001; 82947; 83690; 83735; 84436; 84443; 84484; 85025; 85610; 85730; 87428; 92610; 93005; 93306; 93971; 96361; 96374; 96375; 99285; J1200; J2765; J7030; Q9967